=== PATIENT | female | born 1955 | race Caucasian/White ===

== ENCOUNTER → 2023-06-29 09:55 | Outpatient (BNVA) | payer MEDICARE, MEDICAID, SELFPAY | PROVIDERS: Family Provider Family Medicine; PCP Family Medicine; Referring Provider Family Medicine; Visit Provider Specialist | DX: G35 Multiple sclerosis (principal); G43.711 Chronic migraine without aura, intractable, with status migrainosus | CPT/HCPCS: 99203; 99204 ==

== ENCOUNTER → 2024-07-20 08:28 | Outpatient (BNVA) | payer MEDICARE, MEDICAID, SELFPAY | PROVIDERS: Family Provider Family Medicine; PCP Family Medicine; Visit Provider Specialist | DX: R41.3 Other amnesia (principal); G35 Multiple sclerosis; G43.711 Chronic migraine without aura, intractable, with status migrainosus | CPT/HCPCS: 96116; 99214 ==